=== PATIENT | female | born 1955 | race African-American/Black ===

== ENCOUNTER 2018-05-17 12:50 | Emergency (ER) | payer SELFPAY ==
[~2018-05-17] VITALS: Ht 167.6 cm; Wt 102.1 kg
[2018-05-17 12:53] VITALS: Ht 167.6 cm; Wt 102.1 kg
[2018-05-17 15:12] VITALS: BP 162/96
== END 2018-05-17 15:12 | disposition home or self-care (01) ==
LOC: ED 12:50
DX: S16.1XXA Strain of muscle, fascia and tendon at neck level, initial encounter (principal); Z88.8 Allergy status to other drugs, medicaments and biological substances; Z88.6 Allergy status to analgesic agent; V49.9XXA Car occupant (driver) (passenger) injured in unspecified traffic accident, initial encounter; Y93.89 Activity, other specified; Y92.411 Interstate highway as the place of occurrence of the external cause; Y99.8 Other external cause status
CPT/HCPCS: J3010; Q0162